=== PATIENT | male | born 1970 | race Caucasian/White ===

== ENCOUNTER 2021-08-02 12:44 | Emergency (ER) | payer OTHER ==
--- OUTSIDE RECORDS SUMMARY | 2021-08-02 12:47 | XMS REPORT | Continuity of Care Document ---
:1970 Author Organization [facility] t Address [address] [place] [address] Care Team Providers Name Role Phone BRINDA Attending Clinician Unavailable DIANE Attending Clinician Unavailable Payers Payer Name Policy Type Policy Number Effective Date Expiration Date [facility] [id number] 2021 00:00:00 Problems This patient has no known problems. Allergies, Adverse Reactions, Alerts This patient has no known allergies or adverse reactions. Medications This patient has no known medications. Procedures This patient has no known procedures. Encounters Start End Encounter Admission Attending Care Care Encounter Source Date/Time Date/Time Type Type Clinicians Facility Department ID 2021-08-05 2021-08-05 Outpatient INO PARRY [id number] Ino 15:15:00 15:15:00 KD glaser 2021-08-02 2021-08-02 Outpatient INO CONTRERAS [id number] Ino 00:00:00 00:00:00 ZEV glaser Results This patient has no known results.
--- NOTE | 2021-08-02 14:35 | RAD REPORT ---
EXAM DESCRIPTION: CT - [id number] - 08/02/2021 2:07 pm CLINICAL HISTORY: tingling left arm;Numbness/tingling COMPARISON: No comparisons TECHNIQUE: Axial 5 mm thick images of the head were obtained. Axial 2 mm thick images of the cervic al spine were obtained with sagittal and coronal reconstruction images generated and reviewed. All CT scans are performed using dose optimization technique as appropriate and may include automated exposure control or mA/KV adjustment according to patient size. FINDINGS: No intracranial hemorrhage, mass, edema or acute intracranial finding. No suspicion for ac jermaine infarction. No cortical edema or sulcal effacement. No significant atrophy or significant chronic ischemic changes identifiable. Mastoid air cells and paranasal sinuses are clear. No globe or orbit abnormality seen. Cervical body height and alignment are normal. No disk space narrowing. No fracture or acute bony abn ormality. Central canal detail is inherently limited. No paraspinal mass or hematoma. IMPRESSION: Negative CT head examination for acute or significant finding. Negative CT cervical spine examination for acute or significant finding.
--- NOTE | 2021-08-02 14:39 | EDPHYS ---
Physician Documentation [facility] Name: Berny Roberts Age: 50 yrs Sex: Male : 1970 Arrival Date: 08/02/2021 Time: 12:46 Bed Treatment Private MD: out of town, doctor ED Physician Dewayne Alegre HPI: 08/02 14:07 This 50 yrs old Male presents to ER via Ambulatory with complaints of Numbness Of Arm. rn 14:07 The patient or guardian complains of Numbness and tingling. The complaints affect the rn Left arm, worse in hand. Onset: The symptoms/episode began/occurred 10 day(s) ago. Modifying factors: The symptoms are alleviated by nothing. the symptoms are aggravated by nothing. Severity of symptoms: At their worst the symptoms were moderate, in the emergency department the symptoms have improved. The patient has not experienced similar symptoms in the past. The patient has been recently seen by a physician:. Patient reports 10 days ago he was working on a car with large tools, started to feel numbness and tingling of the left arm. Denied any weakness at the time. Reports seen by chiropractor and manipulation did not improve symptoms. No other focal neurological deficits or symptoms. No neck pain. Has never happened to him before. Went to a clinic today to see a specialist and at front office representative was told to go to ER and not given a reason.. Historical: - Allergies: 13:04 SHELLFISH; iw - Home Meds: 13:19 lisinopril 10 mg Oral tab 1 tab once daily [Active]; metoprolol tartrate 100 mg Oral jg9 tab 1 tab once daily [Active]; - PMHx: 13:19 Hypertension; jg9 - Immunization history:: Client reports having NOT received the Covid vaccine. Flu vaccine is not up to date. - Social history:: Smoking status: Patient/guardian denies using. - Family history:: not pertinent. - Hospitalizations: : No recent hospitalization is reported. ROS: 14:07 Constitutional: Negative for fever, chills, and weight loss, Eyes: Negative for injury, rn pain, redness, and discharge, Neck: Negative for injury, pain, and swelling, Cardiovascular: Negative for chest pain, palpitations, and edema, Respiratory: Negative for shortness of breath, cough, wheezing, and pleuritic chest pain, Abdomen/GI: Negative for abdominal pain, nausea, vomiting, diarrhea, and constipation, Back: Negative for injury and pain, MS/Extremity: Negative for injury and deformity, Skin: Negative for injury, rash, and discoloration, Neuro: Negative for headache, and seizure. Exam: 14:07 Constitutional: This is a well developed, well nourished patient who is awake, alert, rn and in no acute distress. Head/Face: Normocephalic, atraumatic. Neck: Trachea midline, no masses palpated, and no cervical lymphadenopathy. Supple, full range of motion without nuchal rigidity, or vertebral point tenderness. No Meningismus. Cardiovascular: Regular rate and rhythm. No pulse deficits. Skin: Warm, dry with normal turgor. Normal color with no rashes, no lesions, and no evidence of cellulitis. MS/ Extremity: Pulses equal, no cyanosis. Neurovascular intact. Full, normal range of motion. Equal circumference. Neuro: Awake and alert, GCS 15, oriented to person, place, time, and situation. Cranial nerves II-XII grossly intact. Motor strength 5/5 in all extremities. Sensory grossly intact. Cerebellar exam normal. Vital Signs: 13:03 BP 142 / 90; Pulse 73; Resp 16; Temp 98.2; Pulse Ox 97% on R/A; iw 14:12 BP 133 / 86; Pulse 77; Resp 17; Pulse Ox 98% on R/A; Pain 2/10; jg9 14:44 BP 128 / 78; Pulse 72; Resp 17; Temp 97.8; Pulse Ox 98% on R/A; Pain 1/10; jg9 MDM: 13:07 Patient medically screened. rn 14:37 Differential diagnosis: radiculopathy, neuropathy, paresthesias. Data reviewed: vital rn signs, nurses notes, radiologic studies, CT scan, and as a result, I will discharge patient. Counseling: I had a detailed discussion with the patient and/or guardian regarding: the historical points, exam findings, and any diagnostic results supporting the discharge/admit diagnosis, radiology results, the need for outpatient follow up, to return to the emergency department if symptoms worsen or persist or if there are any questions or concerns that arise at home. Special discussion: I discussed with the patient/guardian in detail that at this point there is no indication for admission to the hospital. It is understood, however, that if the symptoms persist or worsen the patient needs to return immediately for re-evaluation. 08/02 13:22 Order name: CT Head C Spine; Complete Time: 14:37 rn Administered Medications: No medications were administered Disposition Summary: 08/02/21 14:38 Discharge Ordered Location: Home rn Problem: new rn Symptoms: have improved rn Condition: Stable rn Diagnosis - Paresthesia of skin rn - Radiculopathy, cervical region rn Followup: rn - With: Private Physician - When: As needed - Reason: Recheck today's complaints, Re-evaluation by your physician Discharge Instructions: - Discharge Summary Sheet rn - Cervical Radiculopathy rn - Paresthesia rn Forms: - Medication Reconciliation Form rn - Thank You Letter rn - Antibiotic application development intern - Prescription Opioid Use rn Prescriptions: - Medrol ([place]) 4 mg Oral Tablets, Dose Pack - take 1 tablet by ORAL route as directed - follow package instructions; 1 rn packet; Refills: 0, Product Selection Permitted Signatures: Dispatcher [employer] Kelly Shane, RN Dewayne Ly MD MD rn Gilmore, Jennifer jg9
--- NOTE | 2021-08-02 14:39 | ER ---
Nurse's Notes [facility] Name: Berny Roberts Age: 50 yrs Sex: Male : 1970 Arrival Date: 08/02/2021 Time: 12:46 Bed Treatment Private MD: out of town, doctor Diagnosis: Paresthesia of skin;Radiculopathy, cervical region Presentation: 08/02 13:01 Chief complaint: Patient states: was working ing on a car about 10 days ago and has had iw numbness to left arm and hand since then , thinks he pinched a nerve, was seen at [facility] and the nurse told him to come to ER. 13:03 Coronavirus screen: At this time, the client does not indicate any symptoms associated iw with coronavirus-19. Ebola Screen: Patient negative for fever greater than or equal to 101.5 degrees Fahrenheit, and additional compatible Ebola Virus Disease symptoms Patient denies exposure to infectious person. Patient denies travel to an Ebola-affected area in the 21 days before illness onset. No symptoms or risks identified at this time. Initial Sepsis Screen: Does the patient meet any 2 criteria? No. Patient's initial sepsis screen is negative. Does the patient have a suspected source of infection? No. Patient's initial sepsis screen is negative. Risk Assessment: Do you want to hurt yourself or someone else? Patient reports no desire to harm self or others. Onset of symptoms was July 23, 2021. 13:03 Method Of Arrival: Ambulatory iw 13:03 Acuity: AYALA 3 iw Historical: - Allergies: 13:04 SHELLFISH; iw - Home Meds: 13:19 lisinopril 10 mg Oral tab 1 tab once daily [Active]; metoprolol tartrate 100 mg Oral jg9 tab 1 tab once daily [Active]; - PMHx: 13:19 Hypertension; jg9 - Immunization history:: Client reports having NOT received the Covid vaccine. Flu vaccine is not up to date. - Social history:: Smoking status: Patient/guardian denies using. - Family history:: not pertinent. - Hospitalizations: : No recent hospitalization is reported. Screenin:18 Abuse screen: Denies threats or abuse. Nutritional screening: No deficits noted. jg9 Tuberculosis screening: No symptoms or risk factors identified. Fall Risk None identified. Assessment: 13:16 General: Appears in no apparent distress. Behavior is calm, cooperative. Pain: Denies jg9 pain. Complains of pain in chest, left axilla and left hand Pain currently is 1 out of 10 on a pain scale. Quality of pain is described as tingling, numb, Pain began over 10 days ago. pt reports that after working on a project for a long period of time he noted numbness to l hand and at times l arm. Pain and numbness worse at night when laying down. No swelling or redness noted. 14:12 Reassessment: No changes from previously documented assessment. Patient and/or family jg9 updated on plan of care and expected duration. Pain level reassessed. Vital Signs: 13:03 BP 142 / 90; Pulse 73; Resp 16; Temp 98.2; Pulse Ox 97% on R/A; iw 14:12 BP 133 / 86; Pulse 77; Resp 17; Pulse Ox 98% on R/A; Pain 2/10; jg9 14:44 BP 128 / 78; Pulse 72; Resp 17; Temp 97.8; Pulse Ox 98% on R/A; Pain 1/10; jg9 ED Course: 12:46 Patient arrived in ED. mr 12:46 out of town, doctor is Private Physician. mr 13:04 Triage completed. iw 13:07 Dewayne Alegre MD is Attending Physician. rn 13:18 Arm band placed on right wrist. jg9 13:18 Bed in low position. Call light in reach. Side rails up X 1. jg9 13:20 No provider procedures requiring assistance completed. jg9 13:[address] jg9 14:07 CT Head C Spine In Process Unspecified. EDMS 14:11 No apparent distress. Resting quietly. Awaiting radiology results. jg9 14:50 Patient did not have IV access during this emergency room visit. jg9 Administered Medications: No medications were administered Outcome: 14:38 Discharge ordered by . rn 14:49 Discharged to home ambulatory. jg9 14:49 Condition: good 14:49 Discharge instructions given to patient, Instructed on discharge instructions, follow up and referral plans. Demonstrated understanding of instructions, follow-up care, medications, Prescriptions given X 1. 14:50 Patient left the ED. jg9 Signatures: Dispatcher [employer] Masha Rayo Irene, Dewayne Ly RN, MD MD rn Gilmore, Jennifer jg9
[2021-08-02 14:56] VITALS: O2SAT 98
[2021-08-02 14:58] VITALS: BP 128/78; TEMP 97.8
== END 2021-08-02 14:50 | disposition home or self-care (01) ==
LOC: ER 12:44
DX: R20.2 Paresthesia of skin (principal); M54.12 Radiculopathy, cervical region; I10 Essential (primary) hypertension; Z91.013 Allergy to seafood
CPT/HCPCS: 70450; 72125; 99284